=== PATIENT | female | born 1945 | race Caucasian/White ===

== ENCOUNTER → 2024-05-03 10:00 | Outpatient (REF) | payer MEDICARE, SELFPAY ==
--- NOTE | 2024-05-03 10:06 | CA_ITS ---
Transthoracic Echocardiogram Patient (Last, First, Middle): Anna Eastman E Gender: Female Date of : 1945 Age: 78 Procedure Date: 05/03/2024 Procedure Type: Transthoracic Echocardiogram Location: OP Height: 160.02 cm Weight: 107.5 kg BSA: 2.08 m2 Heart Rate: bpm BP: 142 / 70 mmHg Special Equipment Technician: JOELLE Referring MD: Elzbieta Carreno [facility] Knife Sharpener: Scott Richmond MD Symptoms: R60.0 R01.1 Study Quality: Fair ECG Rhythm: Sinus Conclusions: - 1. Normal LV ejection fraction 60 65% with impaired relaxation filling pattern 2. [id number]-[id number] calcific aortic stenosis with moderate mitral annular calcification 3. Normal measured RV systolic pressure Findings Left Ventricle Normal left ventricular size, thickness, and systolic function. The visually estimated ejection fraction is between 60-65%. Spectral Doppler is indicative of an impaired relaxation filling pattern. E/E prime ratio is between 8 and 15 consistent with indeterminate filling pressures. There is mild septal asymmetric hypertrophy. Right Ventricle Normal right ventricular cavity size and systolic function. Atria The left atrium is normal in size. There is no evidence of interatrial shunt. The right atrium was not well visualized. Aortic Valve The aortic valve was not well visualized. There is moderate calcification of the aortic valve. There is mild to moderate aortic valve stenosis. The mean gradient is 13 mmHg. The aortic valve area is 1.42 cm2. There is no aortic valve regurgitation. Mitral Valve There is mild anterior and moderate posterior mitral leaflet thickening. There is moderate mitral annular calcification. There is trace mitral valve regurgitation. There is no mitral valve stenosis. Pulmonic Valve The pulmonic valve was not well visualized. Tricuspid Valve Likely normal tricuspid valve structure and function. There is trace tricuspid valve regurgitation. The right ventricular systolic pressure is normal. The right ventricular systolic pressure is 16 mmHg. Normal right atrial pressure. There is no evidence of pulmonary hypertension. Great Vessels The aorta was not well visualized. The pulmonary artery was not well visualized. Venous The inferior vena cava is normal in size and collapses greater than 50% with inspiration. Pericardium/Pleural The pericardium was not well visualized. Prior Study Comparison No prior study available for comparison. Measurements 2D Linear Measurements IVSd: 1.05 0.6-0.9/0.6-1.0 cm LVIDd: 4.51 3.9-5.3/4.2-5.9 cm LVIDd Index: 2.17 2.4-3.2/2.2-3.1 cm/m2 LVIDs: 3.22 2.0-3.6 cm LVPWd: 1.03 0.7-1.1 cm LA Diam: 3.40 2.7-3.8/3.0-4.0 cm LAIDs Index: 1.63 1.5-2.3 cm/m2 LV Mass: 202.24 67-162/88-224 g LV Mass Index: 97.23 43-95/49-115 g/m2 LVOT Diam: 2.10 3.0+(-)1.3 cm 2D Systolic Function EF 4C: 56.20 >55% EF 2C: 66.20 >55% EF BiP: 61.00 >55% Mitral Valve MV Pk E: 0.97 MV PK A: 1.12 MV Decel Time: 236.00 E/A: 0.90 E'Lateral: 6.42 E'Medial: 4.57 E/E' Med: 21.20 E/E' Lat: 15.10 PHT: 69.00 MVA PHT: 3.19 Decel [place]: 4.11 Aortic Valve AoV Pk Bo: 2.26 AoV Mn Bo: 1.70 AoV VTI: 0.59 AoV Pk Grad: 20.00 Aov Mn Grad: 13.00 MATTIE Cont.VTI: 1.42 LVOT LVOT Pk Bo: 0.92 LVOT Mn Bo: 0.61 LVOT VTI: 0.24 LVOT Pk Grad: 3.00 LVOT Mn Grad: 2.00 LVOT Diam: 2.10 LVOT Area: 3.46 Diastolic Function MV Pk E: 0.97 MV Pk A: 1.12 E/A: 0.90 E'Medial: 4.57 E/E' Med: 21.20 E' Laterial: 6.42 E/E' Lat: 15.10 Right Ventricle TAPSE (mm): 27.30 TVS' Bo: 12.10 Tricuspid Valve TR Pk Bo: 1.81 TR Pk Grad: 13.00 RA Press: 3.00 RVSP: 16.00 Great Vessels Aorta Sinus of Valsalva: 3.73 2.0-3.[address] [place]: 2.66 1.7-3.4 cm Ao Asc: 3.30 2.1-3.4 cm Updated in Other Vendor System with Status of Final Scott Richmond MD electronically signed on 05/03/2024 4:53:40 PM with status of Final
== END ==
LOC: HO.CARD 10:00
PROVIDERS: PCP Internal Medicine; Visit Provider Nurse Practitioner Adult Health
DX: R60.0 Localized edema (principal); R01.1 Cardiac murmur, unspecified
CPT/HCPCS: 93306

== ENCOUNTER → 2024-05-03 10:06 | Outpatient (BNV) | payer MEDICARE, SELFPAY | PROVIDERS: PCP Internal Medicine; Visit Provider Internal Medicine Cardiovascular Disease | DX: I35.0 Nonrheumatic aortic (valve) stenosis (principal); I35.8 Other nonrheumatic aortic valve disorders; I34.81 Nonrheumatic mitral (valve) annulus calcification | CPT/HCPCS: 93306 ==

== ENCOUNTER 2024-08-29 10:54 | Outpatient (AMB) | payer MEDICARE, SELFPAY ==
--- NOTE | 2024-08-29 10:59 | A.OFFVIS_ITS ---
Vital Signs 08/29/24 11:02 Height 5 ft 3.5 in Weight 241 lb 10.026 oz BMI 42.1 BP 144/80 H Blood Pressure Location Lt brachial Position Sitting Pulse 75 Intake Visit Reasons: [email or web address].soar/aortic stenosis Substance Abuse Rn Required: No Accompanied by: Self / Same As Patient Allergies No Known Allergies Allergy (Verified 08/29/24 11:03) Medication List - Last Reconciled 08/29/24 by Prince Malik MD acetaminophen (Tylenol Extra Strength) 1,000 mg PO Q6H PRN famotidine (Pepcid) 20 mg PO DAILY HPI Comments Details: This is a cardiology consultation regarding aortic stenosis on the echocardiogram. Patient herself does not have any known cardiac issues. No his tory of any coronary disease or myocardial infarction or cardiomyopathy or in fact any other cardiac issues. She states that because of a heart murmur, she underwent echocardiogram that showed the aortic stenosis. Clinically, she denies any clear-cut symptoms. No angina or shortness of breath within limits of her activity. [facility] Family History (Updated 08/29/24 @ 11:05 by Zuleima Stevens CMA) Father Bladder cancer Mother Dementia Social History (Updated 08/29/24 @ 11:05 by Zuleima Stevens CMA) Alcohol intake: current Alcohol intake frequency: holidays/special occasions only Patient Tobacco Use Status: Former Tobacco user Review of Systems Const Denies chills, Denies daytime sleepiness, Denies fatigue, Denies fever(s), Denies poor appetite, Denies snoring, Denies stops breathing during sleep, Denies weakness, Denies weight gain and Denies weight loss Eyes Denies loss of vision ENT Denies dizziness and Denies hearing loss Card Denies chest pain, Denies irregular heart rhythm, Denies claudication, Denies leg edema, Denies lightheadedness, Denies palpitations, Reports dyspnea, Denies dyspnea on exertion and Denies orthopnea Resp Denies cough, Denies excessive phlegm production, Reports dyspnea, Denies dyspnea on exertion, Denies snoring and Denies wheezing GI Denies abdominal pain, Denies hematochezia, Denies change in bowel habits, Denies nausea and Denies vomiting Denies urinary frequency and Denies dysuria Musc Denies arthralgias, Denies muscle weakness, Denies numbness and Denies other Skin/Breast Denies nail changes and Denies rash Neuro Denies Abnormal speech present, Denies dizziness, Denies loss of vision, Denies memory loss, Denies numbness and Denies weakness Psych Denies depression and Denies memory loss Endo Denies fatigue and Denies palpitations Javier/Lymph Denies easy bruising Aller/Immun Denies wheezing Physical Exam Vital Signs: Last Vital Signs Pulse 75 08/29/24 11:02 BP 144/80 H 08/29/24 11:02 BMI result Body Mass Index 42.1 Const General: comfortable and no acute distress Orientation/consciousness: patient oriented x3 HEENT Other: Unremarkable Head: Yes normal to inspection Neck Neck: Yes normal visual inspection Chest Chest palpation & inspection: normal inspection of the chest Resp Auscultation: clear to auscultation bilaterally Cardio Palpation: normal PMI Heart sounds: S1 normal heart sound present, S2 normal heart sound present, no gallops, Murmur heart sound present systolic III/ and at the right sternal border and no rubs GI Palpation (GI): Soft to palpation Back/Spine/Pelvis Other: unremarkable Skin General skin exam: no rashes or lesions noted Neuro General: patient oriented x3 Speech: No Abnormal speech present Extrem General: Yes normal to inspection Psych Mental Status: mental status grossly normal Office Procedures EKG Details: EKG with underlying sinus rhythm at 75/Min; no significant ST-T [place]; [place]. [id number], Complete Assessment & Plan Assessment & Plan (1) Non-rheumatic aortic stenosis: Code(s): I35.0 - Nonrheumatic aortic (valve) stenosis Category: Medical Plan In the echocardiogram, LVEF is 60-65%. Moderate aortic valve calcification with sswp-[id number]-[id number] aortic stenosis. Moderate mitral annular calcification. Clinically, she does not have any overt symptoms. We discussed about aortic stenosis, pathophysiology, natural course, treatment options extra. We will follow her with another echocardiogram in one year. In the interim, if indeed she develops any symptoms like chest pain or shortness of breath or if anything concerning we will need reassessment. Discussed about that as well. Orders: Orders CA echo transthoracic complete 1 Year I35.0 - Nonrheumatic aortic (valve) stenosis Coding Level of Care Code New Pt Level 4 (10458) Diagnoses Non-rheumatic aortic stenosis I35.0 CPT Codes EKG - CPT: 23722-[id number], Complete ([id number])
[2024-08-29 11:02] VITALS: BP 144/80; PULSE 75; BMI 42.1
--- OUTSIDE RECORDS SUMMARY | 2024-08-29 12:39 | XMS_ITS | Clinical Summary ---
Author Organization Formerly [facility] Address [address] [place] [id number] Phone Care Team Providers Care Slab Puller Name Role Phone Daniel Vargas MD Primary Care Provider [phone] PapMark brandon MD Unavailable [phone] Allergies Active Allergy Reactions Criticality Noted Date Comments Adhesive Rash Low 04/06/2024 Medications Medication Sig Dispensed Refills Start Date End Date Status omeprazole (PRILOSEC) 20 MG capsuleIndications :Hiatal hernia with GERD Take 1 capsule (20 mg total) by mouth daily. 90 capsule 3 06/25/2022 Active Additional Information Patient taking differently:20 mg OralDaily as needed, Reported on 04/06/2024 diclofenac sodium (VOLTAREN) 1 % Gel Apply topically 4 (four) times a day. Active capsaicin-menthol 0.05-5 % PtMdIndications:po stherpetic neuralgia Apply 1 m topically as needed (right arm ache). 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 10 mL 07/13/2024 Active amoxicillin-clavul anate (AUGMENTIN) 875-125 mg per tabletIndications: Periorbital cellulitis of left eye Take 1 tablet (875 mg of amoxicillin total) by mouth 2 (two) times a day for 5 days. 10 tablet 08/03/2024 08/08/2024 Active Problems Problem Noted Date Diagnosed Date Periorbital cellulitis of left eye 08/03/2024 Bacterial conjunctivitis of both eyes 07/13/2024 Assessment & Plan (07/13/2024 12:18 PM EST): Start Polytrim 1 drop in each eye 4 times a day for 5 days patient was advised to continue warm compresses and to not use the same compress after used. Patient was advised to throw out any eye make-up patient was advised that if symptoms do not continue to improve or worsen to return back to the office. Prediabetes 05/09/2024 Assessment & Plan (05/09/2024 1:52 PM EST): Check lipid profile and A1c today, repeat study on wellness visit in 5 months. Frontal sinus pain 04/14/2024 Assessment & Plan (04/14/2024 2:05 PM EDT): Reports 2 yr of sinus pain and pressure on the left . Req ENT ref. Left nare and frontal sinus are tender- no evidence of acute infection/ congestion. She will reach out if she has not heard about ref in 1-2 weeks Chest wall pain 04/14/2024 Assessment & Plan (04/14/2024 2:08 PM EDT): Reports right sided sharp pain on the right since a long ago shingles infection. Will monitor. Currently she uses topical aleve-X with some releif Cardiac murmur, unspecified 04/06/2024 Assessment & Plan (05/09/2024 1:52 PM EST): Has characteristics of aortic stenosis, will review with her the echocardiogram report when it comes in. Assessment & Plan (04/14/2024 2:01 PM EDT): Murmur on exam. Echo booked for 05/03 at [facility] she will then have a f/u 05/[address] Vargas to review. I educated her on what it is, and why it can occur. Await report Assessment & Plan (04/06/2024 2:36 PM EDT): She pres today with a 3 yr hx of LE edema that gets better with elevation. The left is persistently larger than the right. The edema is pitting. She does have a murmur on exam. I tried to get a EKG, but the machine was not working. Placed order for a external echo. She will call to book this in [employer]. Her B/p was quite elevated, will have her come back in 1 week to try again for a EKG and to reassess her B/p. Will then discuss medication for HTN to see if she is open to taking any. Additionally will have her R/T in 4-6 week to f/u with PCP about edema/ HTN/ murmur work up Localized edema 04/06/2024 Assessment & Plan (04/06/2024 2:41 PM EDT): 3 yr hx of b/l LE edema that improves with elevation. Feet do get cool and dusky when dependent. Pedal pulses are 1+ b/l. Edema is worse on left than right. It has consistently been this way for 3 year. Neg homans sign. Advised to cont to elevate. She declines compression stocking due to too tight/ painful . I am getting basic labs, an echo. Tried to get EKG but the machine was not working. F/u 1 week- can try EKG then Senile purpura 04/06/2024 Assessment & Plan (04/06/2024 2:32 PM EDT): I suspect this is senile purpura on arms. I am drawing basic labs to piotr as she has not had medical evaluation in 2 years. Hand out given for her review. Reassured her, no tx indicated Elevated blood pressure read ing without diagnosis of hypertension 04/06/2024 Assessment & Plan (05/09/2024 1:52 PM EST): Blood pressure is borderline but patient at age 78 does not require antihypertensive at this point would be more harmful than helpful. Will continue to follow and see if the blood pressure climbs then would consider antihypertensive. I should see your twice a year. Will call her up regarding the echocardiogram to give her the results. If there is moderate aortic stenosis we should follow-up on the echocardiogram in a year. If there is severe stenosis then we will refer her to cardiology. In regards to the loss of her grievance counseling through hospice recommended. Assessment & Plan (04/14/2024 2:04 PM EDT): Her b/p is improved, but not controlled. I discussed the importance of b/p control to avoid end organ damage and reduce risk of heart attack/ CVA. I discussed starting a medication today. She declines this. I discussed weight reduction will help. Continue adding lemon to her water, exercise. She will also stop the motrin/ Advil use and use tylenol in stead if needed. F/u 05/09 with pcp Assessment & Plan (04/06/2024 2:37 PM EDT): She has elevated b/p today. Will have her come back in 1 week to reassess. I am also ordering basic labs as she has not had any in 2 years. Nor has she had any routine medical care Dyslipidemia 02/19/2022 Assessment & Plan (02/19/2022 3:10 PM EDT): We will check a lipid profile today especially in light of the history of diabetes. We can assess later in 1 month's time whether a statin is to be advised or not. Type 2 diabetes mellitus wit hout complication, without long-term current use of insulin 02/19/2022 Assessment & Plan (02/19/2022 3:12 PM EDT): Patient has the goal to stay off of medications and hope that advised that. Obtain a hemoglobin A1c and discuss the results with her on her next visit in 4 weeks. Hiatal hernia with GERD 02/19/2022 Assessment & Plan (02/19/2022 3:11 PM EDT): For the patient's bilious reflux and also acid indigestion epigastric pressure, start omeprazole 20 mg daily and follow-up in 4 weeks. In that time span will obtain from [facility] radiology department the copies of the findings from upper fluoroscopy. Hx of ovarian cancer 02/19/2022 Overview (02/19/2022): And had ovarian cancer in her late 50s and had a total hysterectomy with oophorectomy and has been considered in remission since. Without she had been released already from the oncologist. The history of hysterectomy may have something to do with the patient's urinary incontinence. Encounters Date Type Department Care Team Description 08/03/2024 1:00 PM EST Telemedicine - audio only [facility] [address] [place] [address] Daniel Vargas MD Periorbital cellulitis of left eye (Primary Dx) 07/13/2024 11:40 AM EST Office Visit [facility] [address] [place] [address] Tyler Shane PA-C Bacterial conjunctivitis of both eyes (Primary Dx) 07/13/2024 Documentation [facility] [address] [place] [address] Daniel Vargas MD 07/12/2024 Telephone [facility] [address] [place] [address] Daniel Vargas MD Eye Pain from Last 3 Months Immunizations Name Administration Dates Next Due Zoster recombinant 03/22/2021,12/06/2020 Social History Tobacco Use Types Packs/Day Years Used Date Smoking Tobacco: Former Cigarettes Q uit: 2008 Smokeless Tobacco: Never Tobacco Cessation:Counseling Given: Not Answered Alcohol Use Standard Drinks/Week Comments Not Currently 0 (1 standard drink = 0.6 oz pur e alcohol) Child or Family Care Answer Date Record ed Do you have problems with on e of the following making it difficult for you to work, study, or receive health care? No 02/19/2022 Education Answer Date Recorded Are you interested in more education? Not on alka e 02/24/2024 Are you concerned about learning? Not on file 02/24/2024 No 02/24/2024 No 02/24/2024 Food Answer Date Recorded Within the past 6 months we worried whether our food would run out before we got money to buy more. Never True 02/19/2022 Food didn't last Not on file 02/19/2022 Residential Stability Answer Date Recor ded What is your housing situation today? I have willy atkinson 02/19/2022 Number of times moved in last year Not on file 02/19/2022 Paying for Meds Answer Date Recorded Do you have trouble paying for medicines? No 02/19/2022 Paying Utility Bills Answer Date Record ed Do you have trouble paying your heating or elect ricity bill? No 02/19/2022 Transportation Answer Date Recorded Has the lack of transportati on kept you from medical appointments or from getting medications? No 02/19/2022 Unemployment Answer Date Recorded Are you currently unemployed or working on a part-time or temporary basis, and looking for work? No 02/19/2022 Digital Access Answer Date Recorded No 11/10/2022 No 11/10/2022 Reliable internet access at home? Not on file 11/10/2022 Device with a working camera? Not on file Sex and Gender Information Value Date Recorded Sex Assigned at Not on file Gender Identity Not on file Sexual Orientation Not on file Last Filed Vital Signs Vital Sign Reading Time Taken Comments Blood Pressure 152/84 07/13/2024 12:00 PM EST Pulse 73 07/13/2024 12:00 PM EST Temperature 36.3 ??C (97.4 ??F) 07/13/2024 12:[address] Respiratory Rate 22 07/13/2024 12:00 PM EST Oxygen Saturation 97% 07/13/2024 12:00 PM EST Inhaled Oxygen Concentration - - Weight 108.9 kg (240 lb) 07/13/2024 12:00 PM EST Height 160 cm (5' 2.99 ) 07/13/2024 12:00 PM EST Body Mass Index 42.52 07/13/2024 12:00 PM EST Plan of Treatment Upcoming Encounters Date Type Department Care Team (Late st Contact Info) Description 10/05/2024 1:00 PM EDT Appointment [facility] [address] [place] [address] Daniel Vargas MD [address] [place] [address] Health Maintenance Due Date Last Done Comments Adult Td,Tdap Booster 1945 HEPATITIS B SCREENING 11/29/1963 PNEUMOCOCCAL VACCINES (50+ years) (1 of 2 - PCV) 1964 OSTEOPOROSIS SCREENING INITIAL (ONE-TIME) 2010 RSV VACCINE (1 - 1-dose 75+ series) 2020 URINE MICROALBUMIN/CREATININE RATIO 02/19/2022 INFLUENZA VACCINE (#1) 2024 COVID-19 VACCINE (3 - 2023- season) 2024 02/25/2021, 01/28/2021 DIABETIC EYE EXAM 03/05/2024 03/05/2023 HEMOGLOBIN A1C 11/06/2024 05/09/2024, 09/0 02/2022, 09/13/2020 BLOOD PRESSURE 01/10/2025 07/13/2024 DEPRESSION SCREENING 04/06/2025 04/06/2024 LIPID PANEL 05/09/2025 05/09/2024, 09/0 02/2022, 09/13/2020, Additional history exists SMOKING Hx and SMOKELESS TOBACCO SCREENING 08/03/2025 08/03/2024 ZOSTER VACCINES Completed 03/22/2021, 12/06/2020 HEPATITIS C SCREENING Completed 02/21/2022 HEPATITIS A VACCINES Aged Out No long er eligible based on patient's age to complete this topic HEPATITIS B VACCINES Aged Out No long er eligible based on patient's age to complete this topic HIB VACCINES Aged Out No longer eligi ble based on patient's age to complete this topic MENINGOCOCCAL VACCINES (ACWY) Aged Out No longer eligible based on patient's age to complete this topic Medical Devices Not on file Procedures Procedure Name Priority Date/Time Associated Diagnosis Comments HEMOGLOBIN A1C Routine 05/09/2024 1:43 PM EST Prediabetes LIPID PANEL Routine 05/09/2024 1:43 PM EST Dyslipidemia HM DIABETES EYE EXAM FOR RESULT ENTRY ONLY Routine 03/05/2023 HEPATITIS C ANTIBODY, QUALITATIVE Routine 02/21/2022 9:49 AM EDT Need for hepatitis C screening test from Last 3 Months or Most Recently Relevant to Health Maintenance Results * (ABNORMAL) Hemoglobin A1c (05/09/2024 1:43 PM EST) HEMOGLOBIN A1C 6.4(H) 4.3 - 5.8 % [facility] Blood 05/09/2024 1:43 PM EST 05/09/2024 1:48 PM EST Daniel Vargas MD LAB BLOOD ORDERABLES Performing Organization Address City/[facility] Co de Phone Number [address] [address] * (ABNORMAL) Lipid panel (05/09/2024 1:43 PM EST) HDL 47 mg/dL [facility] Comment: ? Interpretation <40 mg/dL: Low HDL cholesterol (major risk factor for CHD) Greater than or equal to 60 mg/dL: High HDL cholesterol ( negative risk factor for CHD) HDL - cholesterol is affected by a number of factors, e.g. smoking, excerise, hormones, sex and age. CHOLESTEROL 240 0 - 240 mg/dL [facility] TRIGLYCERIDES 201(H) 30 - 160 mg/dL [facility] LDL 153(H) 50 - 129 mg/dL [facility] Comment: LDL levels in terms of risk for coronary heart disease: <100 mg/dL: Optimal 100-129 mg/dL: Near or above optimal 130-159 mg/dL: Borderline high 160-189 mg/dL: High >190 mg/dL: Very High CARDIAC RISK RATIO 5.1(H) 3.3 - 4.4 C [facility] Blood 05/09/2024 1:43 PM EST 05/09/2024 1:48 PM EST Daniel Vargas MD LAB BLOOD ORDERABLES Performing Organization Address [facility] Co de Phone Number [address] [address] * DIABETES EYE EXAM FOR RESULT ENTRY ONLY (03/05/2023) EYE EXAM no retinopathy Historical Provider MD ANGELA LLANOS E * Hepatitis C antibody, qualitative (02/21/2022 9:49 AM EDT) HCV NON-REACTIV E NON-REACTI VE [facility] Blood 02/21/2022 9:49 AM EDT 02/21/2022 9:51 AM EDT Daniel Vargas MD LAB BLOOD ORDERABLES [facility] [address] [place] [address] from Last 3 Months or Most Recently Relevant to Health Maintenance Care Teams Slab Puller Relationship Specialty Start Date End Date Daniel Vargas MD [address] [place] [address] [email or web address] PCP - General Internal Medicine 02/19/22 Mark Hernandez MD [address] [place] [address] Ophthalmology 05/09/24 Additional Source Comments The information contained in this document represents components of the legal health record. It is not the complete legal health record.Formerly [facility]
--- OUTSIDE RECORDS SUMMARY | 2024-08-29 12:39 | XMS_ITS ---
Author Organization [facility] Address [address] [place] [address] Care Team Providers Care Kit Assembler Name Role Phone Daniel Vargas MD Primary Care Provider Narda Smart [phone] REASON FOR VISIT CX 01/19/24 General Contractor appt Encounters Encounter Location Date Provider Diagnosis [address] [place] [address] 11/19/2023 Narda Charles Plan Of Treatment No Information Progress Notes * Anna EASTMAN EDOB:1945 (77 yo F)Acc No.[id number]:11/19/2023 Patient:?Anna Eastman :1945???Age:77 Y???Sex:Female Address:[place] [address] * true * Date:? Generated for Printi ng/Faxing/eTransmitting on:?08/29/2024 12:39 PM EDT
--- OUTSIDE RECORDS SUMMARY | 2024-08-29 12:39 | XMS_ITS | Clinical Summary ---
Author Organization [employer] [facility] Address [address] [place] [address] Care Team Providers Care Presser Automatic Name Role Phone Maria M Swift MD Primary Care Provider [phone] Allergies No known active allergies Medications No known medications Active Problems Problem Noted Date Diagnosed Date Chronic pain of left knee 02/25/2019 Pes anserine bursitis 12/31/2018 Social History Tobacco Use Types Packs/Day Years Used Date Smoking Tobacco: Never Assessed Sex and Gender Information Value Date Recorded Sex Assigned at Not on file Gender Identity Not on file Sexual Orientation Not on file Last Filed Vital Signs Vital Sign Reading Time Taken Comments Blood Pressure - - Pulse - - Temperature - - Respiratory Rate - - Oxygen Saturation - - Inhaled Oxygen Concentration - - Weight 109.3 kg (241 lb) 12/31/2018 10:46 AM EDT Height 160 cm (5' 3 ) 12/31/2018 10:46 AM EDT Body Mass Index 42.69 12/31/2018 10:46 AM EDT Plan of Treatment Health Maintenance Due Date Last Done Comments Hepatitis C Screening 1945 COVID-19 Vaccine (#1) 05/30/1946 Depression Screening 1957 BMI Counseling 11/29/1963 Preventative Health Evaluation 11/29/1963 DTap / Tdap / Td (1 - Tdap) 1964 Shingrix-Zoster Vaccine (1 of 2) 11/29/1995 Fall Risk Assessment 2010 Osteoporosis Screening (DEXA Scan) 2010 Pneumococcal Vaccine (1 of 1 - PCV) 2010 RSV Adult > 60+ Yrs or Pregn ant (1 - 1-dose 75+ series) 2020 Influenza Vaccine (#1) 2024 Hepatitis B Vaccines Aged Out No long er eligible based on patient's age to complete this topic RSV Ped < 20 months Aged Out No longe r eligible based on patient's age to complete this topic Care Teams Presser Automatic Relationship Specialty Start Date End Date Maria M Swift MD [address] [place] [address] PCP - General Internal Medicine 11/29/18
--- OUTSIDE RECORDS SUMMARY | 2024-08-29 12:39 | XMS_ITS ---
Author Organization [facility] Address [address] [place] [address] Care Team Providers Care Plug Drill Operator Name Role Phone Sam BARNETT, Daniel Primary Care Provider Narda Smart Unavailable [phone] Allergies Allergen (clinical drug ingredient) Drug/Non Drug Allergy documented on EMR Reaction Allergy Type Onset Date Status Adhesive Unknown Allergy Active Social History Tobacco Use: Social History Observation Description Date Details (start date - stop date) Former Smoker NA - NA Tobacco Use/Smoking Question Answer Notes Are you a: former smoker Additional Findings: Tobacco Non-User Current no n-smoker Alcohol Screen Question Answer Notes Did you have a drink containing alcohol in the p ast year? No Points 0 Interpretation Negative Vital Signs Height 5ft4in in 01/19/2024 Weight 235 lbs 01/19/2024 BMI 40.33 kg/m2 01/19/2024 Encounters Encounter Location Date Provider Diagnosis [facility] [address] [place] [address] 01/19/2024 Narda Charles Plan Of Treatment No Information Progress Notes * WOODYBrighte EDOB:1945 (78 yo F)Acc No.[id number]:01/19/2024 Progress Notes Patient:?Bright EASTMANvivian Van Provider:Lam Charles DPM :1945???Age:78 Y???Sex:Female D ate:01/19/2024 Address: [address], [place] Pcp:Daniel Vargas MD Subjective: * Chief Complaints: * ??? * ROS:?General/Constitutional:?Nausea?denies, denies.?Vomiting?denies, denies.?Hunger Thirst?denies, denies.?Loss appetite?denies, denies.?Chills?denies, denies.?Fatigue?denies, denies.?Fever?denies, denies.?Night Sweats denies, denies.?Unexplained weight loss?denies, denies.?Unexplained weight gain?denies, denies.?HEENTM:?Dentures?admits.?Dizziness?denies, denies.?Glasses/contacts?admits.?Retinopathy?denies, denies.?Blurred/double vision?denies, denies.?TMJ?denies, denies.?Discharge/drainage?denies, denies.?Implants?denies, denies.?Sore throat?denies, denies.?Dental implants?denies, denies.?Hard of hearing ?admits.?Difficulty chewing/swallowing/speaking?denies, denies.?Nose bleeds?denies, denies.?Sore mouth?denies, denies.?Respiratory:?On Oxygen?denies, denies.?Pneumonia/pleurisy?denies, denies.?Bronchitis?denies, denies.?Emphysema?denies, denies.?Coughing?denies, denies.?Cough blood?denies, denies.?Shortness of breath?denies, denies.?Wheezing?denies, denies.?Cardiovascular:?Pacemaker?denies, denies.?MVP?denies, denies.?WPW?denies, denies.?CHF?denies, denies.?Heart attack?denies, denies.?Septal defect?denies, denies.?Rapid beat?denies, denies.?Chest pain ?denies, denies.?Atrial Fib.?denies, denies.?Murmur/Palpitations?denies, denies.?Gastrointestinal:?Hemorrhoids?denies, denies.?Stomach/Abdominal pain?denies, denies.?Dark blood stool?denies, denies.?Irritable bowel ?denies, denies.?Constipation?denies, denies.?Diarrhea?denies, denies.?Hematology:?Swelling?denies, denies.?Clots?denies, denies.?Varicose Veins?denies, denies.?Bruising?denies, denies.?Bleeding problem?denies, denies.?Genitourinary:?Blood urine?denies, denies.?Frequent/Painfu/urination/bladder control?denies, denies.?Kidney stones?denies, denies.?Infection (UTI)?denies, denies.?Nephropathy?denies, denies.?sex trans dis (STD)?denies, denies.?Prostate?denies, denies.?Musculoskeletal:?Hammertoes?denies, denies.?Bunions?admits.?Back Pain?denies, denies.?Muscle Cramps/ Resting?admits.?Muscle cramps / walking?denies, denies.?Generalized aches and pains?admits.?Weakness?denies, denies.?Integ.:?Barr?denies, denies.?Scars?denies, denies.?Corns/calluses?admits.?Ingrown nails?denies, denies.?Painful nails?denies, denies.?Open Sores?denies, denies.?Rashes?denies, denies.?Neurologic:?Difficulty sleeping?denies, denies.?Brain disorder?denies, denies.?Numbness?denies, denies.?Balance trouble?admits.?Confusion?denies, denies.?Fainting/blackouts?denies, denies.?Tingling?denies, denies.?Tremors?denies, denies.? * Medical History:?Back,Hip,an d Knee pain, Cancer, Cataracts, Poor circulation, Sciatica, Measles, Mumps, Chicken pox. * Family History:?Mother: dece ased, diagnosed with Family history of arthritis, Diabetic - NIDDM, Unspecified essential hypertension, Other malignant neoplasm of unspecified site.?Father: .? * Social History:?Tobacco Use:?Tobacco Use/Smoking?Are you a:?former smoker ?Additional Findings: Tobacco Non-User?Current non-smoker ???Drugs/Alcohol:?Drugs?Have you used drugs other than those for medical reasons in the past 12 months??No ?Alcohol Screen?Did you have a drink containing alcohol in the past year??No ?Points?0 ?Interpretation?Negative ???Miscellaneous:?Caffeine: yes, frequency:. ?Children: yes, 2. ?Marital status: . * Allergies:?Adhesive: Allergy . Objective: * Vitals:?Ht: 5ft4in, Wt: 235, BMI: 40.33, Shoe size: 9M, Ht-cm: 162.56 cm, Wt-k.59 kg. Assessment: Plan: * Treatment: * Images: * The named appointment provid er may or may not be the originator of this progress note, and it is not deemed complete until electronically signed by the appointment provider. Sign off status: Pending * Provider:?Narda Charles DPM Date:?11/2023 Generated for Elsie katz/Domingo/Cleopatra on:?08/29/2024 12:39 PM EDT
--- OUTSIDE RECORDS SUMMARY | 2024-08-29 12:39 | XMS_ITS | Encounter Summary ---
Author Organization [facility] Address [address] [place] [address] Phone Care Team Providers Care Garden Labourer Name Role Phone Daniel Vargas MD Primary Care Provider [phone] Mark Hernandez MD Unavailable [phone] Reason for Visit * Reason Comments Sick Visit [facility] Encounter Details Date Type Department Care Team (Latest Contact Info) Description 08/03/2024 1:00 PM EST Telemedicine - audio only [facility] Internal Medicine [address] [place] [address] Daniel Vargas MD [address] [place] [address] [email or web address] Periorbital cellulitis of left eye (Primary Dx) Social History Tobacco Use Types Packs/Day Years Used Date Smoking Tobacco: Former Cigarettes Q uit: 2008 Smokeless Tobacco: Never Alcohol Use Standard Drinks/Week Comments Not Currently [...] on file Sexual Orientation Not on file documented as of this encounter Progress Notes * Daniel Vargas MD - 08/03/2024 1:00 PM EST Subjective: Patient ID: Anna Eastman is a 78 y.o. female. This is visit could not be carried out through video visit though it might have been better for diagnostics. Instead it was a phone only telemedicine visit. Back in 07/11 patient started with left eyecrusting, increased injections vision somewhat reduced she had already been seen and prescribed polymyxin antibiotic drops for the eye and felt now that it was finally getting better however still some redness periorbital especially the upper lid and pressure within the left eye but no fever. No purulence around the eyelids according to the patient. She notes that she is tested yearly for glaucoma. She was unable to get in with her electrostatic paint operator but was seen by a provider and prescribed the antibiotic drops. Because of the swelling around the eye patient requesting an antibiotic p.o. Current Outpatient Medications Ordered in Epic: capsaicin-menthol 0.05-5 % PtMd, Apply 1 m topically as needed (right arm ache). 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 omeprazole (PRILOSEC) 20 MG capsule, Take 1 capsule (20 mg total) by mouth daily. (Patient taking differently: Take 20 mg by mouth daily as needed.) polymyxin B trimethoprim (POLYTRIM) 10,000 unit- 1 mg/mL Drop, Place 1 drop into each eye 4 (four) times a day. amoxicillin-clavulanate (AUGMENTIN) 875-125 mg per tablet, Take 1 tablet (875 mg of amoxicillin total) by mouth 2 (two) times a day for 5 days. Impressions and plan: From the patient's description it seems like the left eye is suffering also periorbital cellulitis albeit mild from her description. Augmentin could help with this infection, will call in with 875 mg p.o. twice daily for 5 days. Patient can call us back in 5 days to report howshe is doing regarding the swelling and infection. Review of Systems Objective: Physical Exam Assessment/Plan: Problem List Items Addressed This Visit Periorbital cellulitis of left eye - Primary Relevant Medications amoxicillin-clavulanate (AUGMENTIN) 875-125 mg per tablet documented in this encounter Plan of Treatment Upcoming Encounters Date Type Department Care Team (Late st Contact Info) Description 10/05/2024 1:00 PM EDT Appointment [facility] Internal Medicine [address] [place] [address] Daniel Vargas MD [address] [place] [address] documented as of this encounter Visit Diagnoses Diagnosis Periorbital cellulitis of left eye- Primary documented in this encounter Additional Health Concerns Assessment Noted Time PHQ-2 Depression Total Score: 0 04/06/20 24 11:56 AM EDT documented as of this encounter Care Teams Garden Labourer Relationship Specialty Start Date End Date Daniel Vargas MD [address] [place] [address] [email or web address] PCP - General Internal Medicine 02/19/22 Mark Hernandez MD [address] [place] [address] Ophthalmology 05/09/24 documented as of this encounter Additional Source Comments The information contained in this document represents components of the legal health record. It is not the complete legal health record.[facility]
--- OUTSIDE RECORDS SUMMARY | 2024-08-29 12:39 | XMS_ITS | Encounter Summary ---
Author Organization [facility] Address [address] [place] [address] Phone Care Team Providers Care Natural Resource Manager Name Role Phone Daniel Vargas MD Primary Care Provider [phone] Mark Hernandez MD Unavailable [phone] Reason for Visit * Reason Onset Date Comments Eye Pain 07/12/2024 Encounter Details Date Type Department Care Team (Late st Contact Info) Description 07/12/2024 Telephone Hover 3D [facility] Internal Medicine [address] [place] [address] Daniel Vargas MD [address] [place] [address] [email or web address] Eye Pain Social History Tobacco Use Types Packs/Day Years [...] as of this encounter Progress Notes * Jessica Gunn RN - 08/03/2024 11:34 AM EST Spoke to Anna and advised. She is agreeable, thinks she will be able to do a virtual visit, but states I've been hacked. Scheduled at 1pm with Dr Vargas. * Jessica Gunn RN - 08/03/2024 11:31 AM EST Images from the original note were not included. Daniel Vargas MD [facility] Rn1 hour ago (10:17 AM) BS Plenty of room for a 15 min video visit in afternoon schedule, will see her then * Jessica Gunn RN - 08/03/2024 8:48 AM EST Spoke to Anna and advised. She states understanding. States she was already seen for this. She already has an appointment with the eye doctor. States she moved it out because she has pink eye. Stateswhen she gets up, her eyes are goopy. States the discharge is white, creamy. Sclera is still pink, left eye more so than right. Both eyes are itchy. She is agreeable to following up with luba Sheehan appts. Will review with PCP. * Jessica Gunn RN - 08/03/2024 8:47 AM EST Images from the original note were not included. Tyler Shane PA-C [facility] Landry16 hours ago (4:44 PM) JM She will need to see her eye doctor or follow-up with Dr. Vargas. * Hernan Burch RN - 08/02/2024 3:06 PM EST Pt reports eye drops took 3-4 days to take effect, they felt ok till yesterday, pinkness in left eye never fully resolve, Today left eye was bothering her, blood shoot when she woke up, area is pink now, right eye not as bad. Left eye has slight pulling sensation, no vision change, itchy, some discharge noted. No fever. Pt states that the drop do not seem to be helping, advised re-eval of the eye, offered appt, states that symptoms are pretty much the same, would like to avoid appt if possible.?'s if any other med, maybe something oral can be given? To JM. Ok for detailed message. * Andreina Bernal - 08/02/2024 2:20 PM EST Received call from patient, reports she was seen on 07/13. Reports she is almost out of the eye drops. Reports she is still having trouble with her eyes. Request call to advise [phone] * Jessica Gunn RN - 07/12/2024 2:17 PM EST Spoke to Anna. States she has eye pain in both eyes. States the pain started about 2 days ago. States she's been rubbing her eyes often. This morning, after her shower and applying facial cream, eyesstarted burning. She thought it was cream in her eyes, but thinks it's impossible that it happened to both eyes. Eyes are itchy, burning, and reddened. She states the pain is distracting, she thinks it's making her eye sight a little blurry. She had some trouble driving, but also mentions she hasa loaner car that is all new to her, and the lights on the dash aren't very bright. No headaches or other sick symptoms. No cold symptoms, has ongoing sinus issues. No eye drainage.Has never had pink eye, but states her sister has and symptoms were similar. Advised warm compresses, avoid rubbing, avoid cross contamination, advised frequent hand washing. Scheduled for sick visit tomorrow. She is appreciative. * Ariela Bravo - 07/12/2024 2:12 PM EST Patient called in she states for the past couple of days she has had eye pain. In both eyes. She states it got worse today after she showered this AM. She states she was even driving today and felt like she had difficulty seeing. She mentioned she has an eye appointment with her County Auditor in August but is concerned about her symptoms. documented in this encounter Plan of Treatment Upcoming Encounters Date Type Department Care Team (Late st Contact Info) Description 10/05/2024 1:00 PM EDT Appointment [facility] Internal Medicine [address] [place] [address] Daniel Vargas MD [address] [place] [address] documented as of this encounter Visit Diagnoses Not on filedocumented in this encounter Additional Health Concerns Assessment Noted Time PHQ-2 Depression Total Score: 0 04/06/20 24 11:56 AM EDT documented as of this encounter Care Teams Natural Resource Manager Relationship Specialty Start Date End Date Daniel Vargas MD [address] [place] [address] PCP - General Internal Medicine 02/19/22 Mark Hernandez MD [address] [place] [address] Ophthalmology 05/09/24 documented as of this encounter Additional Source Comments The information contained in this document represents components of the legal health record. It is not the complete legal health record.[facility]
--- OUTSIDE RECORDS SUMMARY | 2024-08-29 12:39 | XMS_ITS | Clinical Summary ---
Author Organization [facility] Address [address] [place] [address] Care Team Providers Care Cemetery Warden Name Role Phone Nicole Menezes MD Primary Care Provider Surgical History Surgery Date Site/Laterality Comments CATARACT EXTRACTION PROCEDURE: HISTORICAL CATARACT REMOVAL HYSTERECTOMY PROCEDURE: HISTORICAL HYSTERECTOMY OTHER SURGICAL HISTORY PROCEDURE: HISTORY OTHER; COMMENT: nasal polypectomy HYSTERECTOMY PROCEDURE:HYSTERECTOMY Medical History Medical History Date Comments Arthralgia of multiple sites 11/02/2017 DX: Arthralgia of multiple sites Asthma 09/29/2012 DX:Asthma Cataract 09/09/2012 DX:Cataract; COM MENT: S/p surgery Fatty liver 02/13/2010 DX:Fatty liver Gastro-esophageal reflux dis ease with esophagitis 03/12/2011 DX:Gastro-esophageal reflux disease with esophagitis Hyperlipidemia 11/02/2017 DX:Hyperlipidemi a Type 2 diabetes mellitus wit h cataract (CMS/HCC) 11/02/2017 DX:Type 2 diabetes mellitus with cataract (HCC) Cancer (CMS/HCC) DX:Cancer (HCC) Diabetes mellitus (CMS/HCC) DX:D iabetes mellitus (HCC) Social History Tobacco Use Types Packs/Day Years Used Date Smoking Tobacco: Never Assessed Comments Unknown Sex and Gender Information Value Date Recorded Sex Assigned at Not on file Legal Sex Female 10:17 AM EST Gender Identity Not on file Sexual Orientation Not on file Obstetrics History Plan of Treatment Health Maintenance Due Date Last Done Comments DTaP,Tdap,and Td Vaccines (1 - Tdap) 1964 Pneumococcal Vaccine: 50+ Ye ars (1 of 1 - PCV) 11/29/1995 Zoster Vaccines (1 of 2) 11/29/1995 RSV Immunization Patients 60 + Years Old (1 - 1-dose 75+ series) 2020 COVID-19 Vaccine ( - 2023-2 5 season) 2024 Influenza Vaccine (#1) 2024 HIB Vaccines Aged Out No longer eligi ble based on patient's age to complete this topic HPV Vaccines Aged Out No longer eligi ble based on patient's age to complete this topic Hepatitis A Vaccines Aged Out No long er eligible based on patient's age to complete this topic Hepatitis B Vaccines Aged Out No long er eligible based on patient's age to complete this topic IPV Vaccines Aged Out No longer eligi ble based on patient's age to complete this topic MMR Vaccines Aged Out No longer eligi ble based on patient's age to complete this topic Meningococcal ACWY Vaccine Aged Out N o longer eligible based on patient's age to complete this topic Meningococcal B Vacine Aged Out No lo nger eligible based on patient's age to complete this topic RSV Immunization Patients Un shanae 20 months Aged Out No longer eligible b ased on patient's age to complete this topic Varicella Vaccines Aged Out No longer eligible based on patient's age to complete this topic Care Teams Cemetery Warden Relationship Specialty Start Date End Date Nicole Menezes MD PCP - General Internal Medicine 04/09/18
--- OUTSIDE RECORDS SUMMARY | 2024-08-29 12:39 | XMS_ITS | Encounter Summary ---
Author Organization [facility] Address [address] [place] [address] Phone Care Team Providers Care Rubber Boots And Shoes Repairer Name Role Phone Daniel Vargas MD Primary Care Provider [phone] Mark Hernandez MD Unavailable [phone] Reason for Visit * Reason Onset Date Comments Referral 05/27/2024 Encounter Details Date Type Department Care Team (Late st Contact Info) Description 05/27/2024 Telephone [facility] Internal Medicine [address] [place] [address] Daniel Vargas MD [address] [place] [address] [email or web address] Referral Social History Tobacco Use Types Packs/Day Years [...] as of this encounter Progress Notes * Ernestina Da Silva - 05/27/2024 10:44 AM EST Pt called in Stated that she understood that Dr. Vargas was sending a Referral for Cardiology, however after I review note and open Frefrrals I do not see this in chart. Please review with PCP and advise pt if this needed. Central Support Quality Control Assistant (Please do not reply to this user; this inbox is not monitored.) Thank you. documented in this encounter Plan of Treatment Upcoming Encounters Date Type Department Care Team (Late st Contact Info) Description 10/05/2024 1:00 PM EDT Appointment [facility] [address] [facility] [place] [address] Daniel Vargas MD [address] [facility] [place] [address] [email or web address] documented as of this encounter Visit Diagnoses Not on filedocumented in this encounter Additional Health Concerns Assessment Noted Time PHQ-2 Depression Total Score: 0 04/06/20 11:56 AM EDT documented as of this encounter Care Teams Rubber Boots And Shoes Repairer Relationship Specialty Start Date End Date Daniel Vargas MD [address] [place] [address] [email or web address] PCP - General Internal Medicine 02/19/22 Mark Hernandez MD [address] [place] [address] Ophthalmology 05/09/24 documented as of this encounter Additional Source Comments The information contained in this document represents components of the legal health record. It is not the complete legal health record.[facility]
--- OUTSIDE RECORDS SUMMARY | 2024-08-29 12:40 | XMS_ITS | Patient Health Record ---
Author Organization [facility] Address [address] [place] [address] Care Team Providers Care Fire Chief Name Role Phone Sam BARNETT, Daniel Primary Care Provider Narda Smart Unavailable [phone] Allergies Allergen (clinical drug ingredient) Drug/Non Drug Allergy documented on EMR Reaction Allergy Type Onset Date Status Adhesive Unknown Allergy Active Reason For Referral No Information Social History Tobacco Use: Social History Observation Description Date Details (start date - stop date) Former Smoker NA - NA Tobacco Use/Smoking Question Answer Notes Are you a: former smoker Additional Findings: Tobacco Non-User Current no n-smoker Alcohol Screen Question Answer Notes Did you have a drink containing alcohol in the p ast year? No Points 0 Interpretation Negative Encounters Encounter Location Date Provider Diagnosis [address] [address] 11/19/2023 Narda Charles Plan Of Treatment No Information Insurance Providers Payer Name Payer Address Payer Phone Subscriber Number Group Number Insured Name Patient Relationship to Insured Coverage Start Date Coverage End Date [employer] Preferred [address] [place] [address] [phone] [id number] Anna Eastman Self - patient is the insured Medical (General) History Medical History History ICD Code Back,Hip,and Knee pain Cancer Cataracts Poor circulation Sciatica Measles Mumps Chicken pox
== END 2024-08-29 11:28 | disposition home or self-care (01) ==
LOC: HO.HCS 10:57
PROVIDERS: PCP Internal Medicine; Visit Provider Internal Medicine
DX: I35.0 Nonrheumatic aortic (valve) stenosis (principal)
CPT/HCPCS: 93010; 99204

== ENCOUNTER → 2024-08-29 10:54 | Outpatient (BNVA) | payer MEDICARE, SELFPAY | PROVIDERS: PCP Internal Medicine; Visit Provider Internal Medicine | DX: I35.0 Nonrheumatic aortic (valve) stenosis (principal) | CPT/HCPCS: 93005; 99202 ==

== ENCOUNTER 2024-09-30 15:55 | Outpatient (REF) | payer MEDICARE, SELFPAY ==
--- OUTSIDE RECORDS SUMMARY | 2024-09-30 15:58 | XMS_ITS | Patient Health Record ---
Author Organization [facility] Address [address] [facility] [place] [address] Care Team Providers Care Systems Operator Name Role Phone Sam BARNETT, Daniel Primary Care Provider Narda Smart Unavailable [phone] Allergies Allergen (clinical drug ingredient) Drug/Non Drug [...] Negative Encounters Encounter Location Date Provider Diagnosis [facility] [address] [place] [address] 11/19/2023 Narda Charles Plan Of Treatment No Information Insurance Providers Payer Name Payer Address Payer Phone Subscriber Number Group Number Insured Name Patient Relationship to Insured Coverage Start Date Coverage End Date [employer] Preferred [address] [place] [address] [phone] [id number] Anna Eastman Self - patient is the insured Medical (General) History Medical History History ICD Code Back,Hip,and Knee pain Cancer Cataracts Poor circulation Sciatica Measles Mumps Chicken pox
--- OUTSIDE RECORDS SUMMARY | 2024-09-30 15:58 | XMS_ITS ---
Author Organization [facility] Address [address] [place] [address] Care Team Providers Care Financial Investment Adviser Name Role Phone Daniel Vargas MD Primary Care Provider Narda Smart [phone] REASON FOR VISIT CX 01/19/24 Associate Sales Manager appt Encounters Encounter Location Date Provider Diagnosis [address] [place] [address] 11/19/2023 Narda Charles Plan Of Treatment No Information Progress Notes * Anna EASTMAN EDOB:1945 (77 yo F)Acc No.[id number]:11/19/2023 Patient:?Anna Eastman :1945???Age:77 Y???Sex:Female Address:[place] [address] * true * Date:? Generated for Printi ng/Faxing/eTransmitting on:?09/30/2024 03:58 PM EDT
--- OUTSIDE RECORDS SUMMARY | 2024-09-30 15:58 | XMS_ITS ---
Author Organization [facility] Address [address] [place] [address] Care Team Providers Care Deep Tissue Massage Therapist Name Role Phone Sam BARNETT, Daniel Primary Care Provider Narda Smart Unavailable [phone] Allergies Allergen (clinical drug ingredient) Drug/Non Drug [...] 01/19/2024 Encounters Encounter Location Date Provider Diagnosis [facility] [address] [place] [address] 01/19/2024 Narda Charles Plan Of Treatment No Information Progress Notes * HEROBright RIVASe EDOB:1945 (78 yo F)Acc No.[id number]:01/19/2024 Progress Notes Patient:?Bright EASTMANvivian Van Provider:Lam Charles DPM :1945???Age:78 Y???Sex:Female D ate:01/19/2024 Address:[address], [place] Pcp:Daniel Vargas MD Subjective: * Chief Complaints: [...] Charles DPM Date:?11/2023 Generated for Elsie katz/Domingo/Cleopatra on:?09/30/2024 03:57 PM EDT
--- OUTSIDE RECORDS SUMMARY | 2024-09-30 15:58 | XMS_ITS | Clinical Summary ---
Author Organization [facility] Address [address] [place] [address] Care Team Providers Care Antisqueak Worker Name Role Phone Maria M Swift MD Primary Care Provider [phone] Allergies No known active allergies Medications No [...] age to complete this topic Care Teams Antisqueak Worker Relationship Specialty Start Date End Date Maria M Swift MD [address] [place] [id number] PCP - General Internal Medicine 11/29/18
--- OUTSIDE RECORDS SUMMARY | 2024-09-30 15:58 | XMS_ITS | Clinical Summary ---
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) Cancer (CMS/HCC V24, [facility]/HCC V28) DX:Cancer (HCC) Diabetes mellitus ([facility]/HCC V 24, [facility] V28) DX:Diabetes mellitus (HCC) Social History Tobacco Use Types [...] Vaccines (1 of 2) 11/29/1995 RSV Immunization Adult Patie nts (1 - 1-dose 75+ series) 2020 COVID-19 Vaccine (2023-2 5 season) 2024 Influenza Vaccine (Season Ended) 2025 HIB Vaccines Aged Out No longer eligi [...] age to complete this topic Meningococcal B Vaccine Aged Out No l onger eligible based on patient's age to complete this topic RSV Immunization Patients Un shanae 20 months Aged Out No longer eligible b ased on patient's age to complete this topic Varicella Vaccines Aged Out No longer eligible based on patient's age to complete this topic Care Teams Surgical Dressing Maker Relationship Specialty Start Date End Date Nicole Menezes MD PCP - General Internal Medicine 04/09/18
== END 2024-09-30 15:56 | disposition home or self-care (01) ==
LOC: HO.CT 15:55
PROVIDERS: PCP Internal Medicine; Visit Provider Internal Medicine
DX: J01.00 Acute maxillary sinusitis, unspecified (principal)
CPT/HCPCS: 70486

== ENCOUNTER → 2024-09-30 16:11 | Outpatient (BNV) | payer MEDICARE, SELFPAY | PROVIDERS: PCP Internal Medicine; Visit Provider Radiology Diagnostic Radiology | DX: J01.90 Acute sinusitis, unspecified (principal) | CPT/HCPCS: 70486 ==